=== PATIENT | female | born 1970 | race Caucasian/White ===

== ENCOUNTER 2018-05-01 15:28 | Emergency (ER) | payer SELFPAY ==
[~2018-05-01] VITALS: Ht 160 cm; Wt 124.7 kg
[2018-05-01 15:32] VITALS: BP 129/46
--- NOTE | 2018-05-01 15:32 | NUR ---
PT BIBA ALS TO BED 4
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
--- NOTE | 2018-05-01 16:47 | NUR ---
DR. CONN EVALUATING PT
[2018-05-01] MEDS ORDERED: KETOROLAC 60 MG/2 ML VIAL IM ONE (16:55)
[2018-05-01] MEDS ORDERED: MORPHINE SULFATE 4 MG/ML SYR IM ONE (16:55)
--- NOTE | 2018-05-01 17:19 | NUR ---
pt taken to ct
--- NOTE | 2018-05-01 17:29 | NUR ---
PT RETURNED FROM CT
[2018-05-01 19:41] VITALS: BP 117/41
[2018-05-01 19:47] LABS: APPEARANCE,URINE CLEAR (CLEAR); BILIRUBIN,URINE NEGATIVE (NEGATIVE); BLOOD, URINE NEGATIVE (NEGATIVE); COLOR,URINE YELLOW (YELLOW); LEUKOCYTE ESTERASE ,URINE NEGATIVE (NEGATIVE); NITRITE, URINE NEGATIVE (NEGATIVE); UGLUCOSE 3+ (NEGATIVE)
== END 2018-05-01 19:39 | disposition home or self-care (01) ==
LOC: EDSEX 15:28 → MED 15:28
DX: M54.2 Cervicalgia (principal); K80.20 Calculus of gallbladder without cholecystitis without obstruction; N28.81 Hypertrophy of kidney; E11.9 Type 2 diabetes mellitus without complications; I10 Essential (primary) hypertension; V49.59XA Passenger injured in collision with other motor vehicles in traffic accident, initial encounter; Y93.89 Activity, other specified; Y92.410 Unspecified street and highway as the place of occurrence of the external cause; Y99.8 Other external cause status
CPT/HCPCS: 71250; 72125; 74176; 81003; 81025; 96372; 99284; J1885; J2270